=== PATIENT | female | born 1990 | race Caucasian/White ===

== ENCOUNTER 2021-10-14 14:46 | Outpatient (CLI) | payer SELFPAY ==
[2021-10-14 15:09] LABS: Absolute Lymphocyte Count 2.53 X10^3/uL (0.83-4.51); Absolute Neutrophil Count 9.7 X10^3/uL (2.0-7.7); Basophil# 0.05 X10^3/uL; Basophil% 0.4 % (0-1); Eosinophil# 0.14 X10^3/uL; Hematocrit 37.6 % (37-47); Hemoglobin 12.8 g/dL (12.0-15.0); Lymphocyte # 2.53 X10^3/ul (0.83-4.51); Lymphocyte % 18.6 % (19-41); Mean Corpuscular Volume 88.3 fL (81-99); Mean Platelet Vol. 10.6 fl (6.2-12.0); Monocyte# 1.04 X10^3/uL; Monocyte% 7.7 % (0-10); NRBC Flagged by Analyzer 0 % (0-5); Neutrophil # 9.73 X10^3/uL (2.7-7.7); Neutrophil % 71.6 % (47-70); Platelet Count 252 K/mm3 (150-450); RBC Distribution Width CV 11.9 % (11.6-14.6); RBC Distribution Width SD 37.6 fl (35.1-43.9); Red Blood Count 4.26 M/mm3 (4.2-5.4); White Blood Count 13.6 K/mm3 (4.4-11.0)
[2021-10-14 16:27] LABS: HIV - WCH Non-Reactive (Nonreactive); Hepatitis B Surface Antigen Non-Reactive (Nonreactive); Hepatitis C Antibody Non-Reactive (Nonreactive); Rubella IgG Reactive (Nonreactive); Syphilis Antibodies Non-reactive
[2021-10-14 17:25] LABS: Amphetamine Urine VISTA NEGATIVE (<1000 ng/mL); Barbiturate Urine VISTA NEGATIVE (< 200 ng/mL); Benzodiazepine Urine VISTA NEGATIVE (< 200 ng/mL); Cocaine Urine VISTA NEGATIVE (< 300 ng/mL); Ecstacy Urine VISTA NEGATIVE (< 500 ng/mL); Methadone Urine VISTA NEGATIVE (< 300 ng/mL); PCP Urine VISTA NEGATIVE (< 25 ng/mL); THC Urine VISTA NEGATIVE (< 50 ng/mL); Vista UDS pH Range 6
[2021-10-18 15:07] LABS: Chlamydia By Nucleic Acid AMP Negative (Negative)
[2021-10-18 16:08] LABS: Gonococcus By Nucleic Acid AMP Negative (Negative)
[2021-10-20 08:46] LABS: HPV APTIMA, High Risk Negative (Negative)
== END 2021-10-14 23:59 | disposition short-term general hospital (02) ==
PROVIDERS: Referring Provider Obstetrics & Gynecology; Visit Provider Obstetrics & Gynecology
DX: Z34.00 Encounter for supervision of normal first pregnancy, unspecified trimester (principal)
CPT/HCPCS: 36415; 80307; 85025; 86703; 86762; 86780; 86803; 86850; 86900; 86901; 87086; 87340; 87491; 87591; 87624; 88175; G0145

== ENCOUNTER 2021-12-10 14:02 | Outpatient (CLI) | payer SELFPAY ==
[2021-12-10 15:06] LABS: NATERA MAILED SPECIMEN
== END 2021-12-10 23:59 | disposition home or self-care (01) ==
PROVIDERS: Referring Provider Obstetrics & Gynecology; Visit Provider Obstetrics & Gynecology
DX: Z34.81 Encounter for supervision of other normal pregnancy, first trimester (principal)
CPT/HCPCS: 36415

== ENCOUNTER 2022-01-07 12:47 | Outpatient (CLI) | payer SELFPAY ==
--- NOTE | 2022-01-07 12:51 | US_ITS ---
STUDY: SECOND AND THIRD TRIMESTER OBSTETRICAL ULTRASOUND REASON FOR EXAM: Female, 31 years old 20 week anatomy scan LMP: 08/15/2021. TECHNIQUE: Transabdominal and Transvaginal TECHNICAL QUALITY: Adequate. PRIOR ULTRASOUND: None. FINDINGS: There is a single intrauterine fetus. The fetus is in a cephalic presentation. There is demonstrated cardiac activity with a heart rate of 151 bpm. There is a normal amniotic fluid volume. The largest amniotic fluid pocket measures 4.2 cm x 10 cm. The amniotic fluid index (SOLANGE) is within normal limits. The placenta is anterior in location and is not low lying. There are Grade 0 placental changes. The cervix measures 4.3 cm in length. The bilateral adnexal regions are normal. BIOMETRY: BPD: 4.5 cm: 19 weeks, 4 days HC: 16.9 cm: 19 weeks, 3 days AC: 14 cm: 19 weeks, 2 days FL: 3.2 cm: 19 weeks, 6 days CI: 81% FL/BPD: 71% FL/HC: FL/AC: 23% HC/AC: 1.2 age by current US: 19 weeks, 2 days. WILL by current US: 06/01/2022. Estimated weight: 304 grams, +/- 46 grams, 7 %. Age by LMP: 20 weeks, 5 days. WILL by LMP: 06/01/2022. ANATOMY: Gender: Female Cranium: Normal lateral ventricles. Normal choroid plexus. Normal cerebellum. Normal cisterna magna. Normal face, nose and lips. Chest: Normal 4-chamber heart. Abdomen/Pelvis: Normal diaphragm. Normal stomach. Normal abdominal wall. Normal cord insertion. Normal 3 vessel cord. Normal kidneys. Normal bladder. Spine: Limited longitudinal images of the spine. Extremities: Normal bilateral upper extremities. Normal bilateral lower extremities. IMPRESSION: Single live intrauterine gestation dating 19 weeks and 2 days[address] the fetus in the 7th percentile. Limited longitudinal imaging of the spine. Follow-up recommended. Electronically Signed: César Waterman MD at 11:04 EDT , STUDY: FIRST TRIMESTER OBSTETRICAL ULTRASOUND REASON FOR EXAM: Female, 31 years old. Cervical length. LMP: 08/15/2021. TECHNIQUE: Transvaginal TECHNICAL QUALITY: Adequate. PRIOR ULTRASOUND: None. FINDINGS: The cervical length measures 4.3 cm. US/OB Anatomy Scan IMPRESSION: Cervical length measures 4.3 cm. Electronically Signed: César Waterman MD at 11:05 EDT ,
== END 2022-01-07 23:59 | disposition home or self-care (01) ==
PROVIDERS: PCP Family Medicine; Referring Provider Obstetrics & Gynecology; Visit Provider Obstetrics & Gynecology
DX: Z34.91 Encounter for supervision of normal pregnancy, unspecified, first trimester (principal); Z3A.12 12 weeks gestation of pregnancy
CPT/HCPCS: 76805; 76817

== ENCOUNTER → 2022-01-28 | Outpatient (CLI) | payer SELFPAY ==
--- NOTE | 2022-01-28 12:28 | US_ITS ---
STUDY: SECOND AND THIRD TRIMESTER OBSTETRICAL ULTRASOUND - LIMITED REASON FOR EXAM: Female, 31 years old repeat views of spine LMP: 08/15/2021. PRIOR ULTRASOUND: Comparison is made with prior study dated 01/07/2022. TECHNIQUE: Transabdominal TECHNICAL QUALITY: Adequate. FINDINGS: There is a single intrauterine fetus. The fetus is in a breech presentation. There is demonstrated cardiac activity with a heart rate of 150 bpm. There is a normal amniotic fluid volume. The largest amniotic fluid pocket measures 7.5 cm x 4.8 cm. The amniotic fluid index (SOLANGE) is within normal limits. The placenta is anterior in location and is not low lying. There are Grade 0 placental changes. The cervix measures 3.6 cm in length. Visualization of the cervical, thoracic, lumbar and sacral regions was obtained. No abnormality is seen. Incidental note is made of a 3.2 cm x 3.1 cm by 2.5 cm uterine fibroid. US/OB Limited (No Biometrics) IMPRESSION: Normal spine. Electronically Signed: César Waterman MD at 10:14 EDT ,
== END | disposition home or self-care (01) ==
PROVIDERS: PCP Family Medicine; Visit Provider Obstetrics & Gynecology
DX: Z34.90 Encounter for supervision of normal pregnancy, unspecified, unspecified trimester (principal)
CPT/HCPCS: 76815

== ENCOUNTER 2022-03-03 14:11 | Outpatient (CLI) | payer SELFPAY ==
[2022-03-03] VITALS (12 sets, daily range): BP systolic 116–126; BP diastolic 71–91; PULSE 100–123; TEMP 37.4; O2SAT 98; BMI 29.0
[2022-03-03 15:09] LABS: Hematocrit 36.5 % (37-47); Hemoglobin 12.4 g/dL (12.0-15.0); Mean Corpuscular Volume 91.3 fL (81-99); Mean Platelet Vol. 11.3 fl (6.2-12.0); Platelet Count 198 K/mm3 (150-450); RBC Distribution Width CV 12.1 % (11.6-14.6); RBC Distribution Width SD 40.4 fl (35.1-43.9); White Blood Count 13.7 K/mm3 (4.4-11.0)
[2022-03-03 15:18] LABS: International Normalized Ratio 1.1; Prothrombin Time (Protime)PT. 13.6 SECONDS (11.7-14.9)
[2022-03-03 15:19] LABS: Partial Thromboplast Time 30.1 Seconds (24.1-36.2)
[2022-03-03 15:21] LABS: Vista UDS pH Range 7
[2022-03-03 15:26] LABS: Glucose Challenge Gest 1H 50g 168 mg/dL (70-140)
[2022-03-03 15:31] LABS: Protein, Urine (Random) 28.7 mg/dL (<11.9); Protein:Creat Ratio 173 mg/g CRE (0-200)
[2022-03-03 15:50] LABS: Amphetamine Urine VISTA NEGATIVE (<1000 ng/mL); Barbiturate Urine VISTA NEGATIVE (< 200 ng/mL); Benzodiazepine Urine VISTA NEGATIVE (< 200 ng/mL); Cocaine Urine VISTA NEGATIVE (< 300 ng/mL); Ecstacy Urine VISTA NEGATIVE (< 500 ng/mL); Methadone Urine VISTA NEGATIVE (< 300 ng/mL); PCP Urine VISTA NEGATIVE (< 25 ng/mL); THC Urine VISTA NEGATIVE (< 50 ng/mL)
[2022-03-03 16:03] LABS: LDH 172 U/L (84-246)
[2022-03-03 16:17] LABS: AST(SGOT) 19 U/L (15-37); Alanine Aminotransfer ALT/SGPT 32 U/L (13-56); Creatinine, Serum 0.57 mg/dL (0.55-1.02); EST Glomerular Filtration Rate 131 mL/min (>60); Est Glom Filt Rate - Afr Amer 159 mL/min (>60); Estimated Creatinine Clearance 123.49 ml/min
--- NOTE | 2022-03-03 17:21 | OB.TRI.PN_ITS ---
Progress Notes Date of Service: 03/03/22 Progress Note: Patient presents for triage evaluation secondary to elevated bp in office FHT: 145 Moderate variability reactive no decelerations category I tracing [place]: no regular Contractions Assessment and plan: elevated bp- repeats WNL, neg urine protein nl labs React ilya NST, reassuring maternal and status patient discharged to home to follow-up in office in 1 week, needs 3 hour gtt. See problem list details for additional plan information. Laboratory Studies: Laboratory Tests 03/03/22 03/03/22 03/03/22 Range/Units 14:45 14:35 14:35 WBC (4.4-11.0) K/mm3 RBC (4.2-5.4) M/mm3 Hgb (12.0-15.0) g/dL Hct (37-47) % MCV (81-99) fL MCH (27.0-32.0) pg MCHC (32-36) g/dL RDW Std Deviation (35.1-43.9) fl RDW Coeff of Neeraj (11.6-14.6) % Plt Count (150-450) K/mm3 MPV (6.2-12.0) fl PT (11.7-14.9) SECONDS INR APTT (24.1-36.2) Seconds Creatinine (0.55-1.02) mg/dL Estim Creat Clear Calc ml/min Est GFR (MDRD) Af Amer (>60) mL/min Est GFR (MDRD) Non-Af (>60) mL/min Glucose 1 Hr 50 gm 168 H (70-140) mg/dL Uric Acid (2.6-6.0) mg/dL AST (15-37) U/L ALT (13-56) U/L Lactate Dehydrogenase 172 (84-246) U/L U Random Total Protein (<11.9) mg/dL Urine Creatinine (NO RANGE EST.) mg/dL Protein/Creatinin Ratio (0-200) mg/g CRE Urine Opiates Screen NEGATIVE (< 300 ng/mL) Urine Methadone Screen NEGATIVE (< 300 ng/mL) Ur Barbiturates Screen NEGATIVE (< 200 ng/mL) Ur Phencyclidine Scrn NEGATIVE (< 25 ng/mL) Ur Amphetamines Screen NEGATIVE (<1000 ng/mL) MDMA (Ecstasy) Screen NEGATIVE (< 500 ng/mL) U Benzodiazepines Scrn NEGATIVE (< 200 ng/mL) Urine Cocaine Screen NEGATIVE (< 300 ng/mL) U Cannabinoids Screen NEGATIVE (< 50 ng/mL) Ur Drug Screen Comment 03/03/22 03/03/22 03/03/22 Range/Units 14:35 14:35 14:35 WBC (4.4-11.0) K/mm3 RBC (4.2-5.4) M/mm3 Hgb (12.0-15.0) g/dL Hct (37-47) % MCV (81-99) fL MCH (27.0-32.0) pg MCHC (32-36) g/dL RDW Std Deviation (35.1-43.9) fl RDW Coeff of Neeraj (11.6-14.6) % Plt Count (150-450) K/mm3 MPV (6.2-12.0) fl PT 13.6 (11.7-14.9) SECONDS INR 1.1 APTT 30.1 (24.1-36.2) Seconds Creatinine 0.57 (0.55-1.02) mg/dL Estim Creat Clear Calc 123.49 ml/min Est GFR (MDRD) Af Amer 159 (>60) mL/min Est GFR (MDRD) Non-Af 131 (>60) mL/min Glucose 1 Hr 50 gm (70-140) mg/dL Uric Acid 3.0 (2.6-6.0) mg/dL AST 19 (15-37) U/L ALT 32 (13-56) U/L Lactate Dehydrogenase (84-246) U/L U Random Total Protein 28.7 H (<11.9) mg/dL Urine Creatinine 166.00 (NO RANGE EST.) mg/dL Protein/Creatinin Ratio 173 (0-200) mg/g CRE Urine Opiates Screen (< 300 ng/mL) Urine Methadone Screen (< 300 ng/mL) Ur Barbiturates Screen (< 200 ng/mL) Ur Phencyclidine Scrn (< 25 ng/mL) Ur Amphetamines Screen (<1000 ng/mL) MDMA (Ecstasy) Screen (< 500 ng/mL) U Benzodiazepines Scrn (< 200 ng/mL) Urine Cocaine Screen (< 300 ng/mL) U Cannabinoids Screen (< 50 ng/mL) Ur Drug Screen Comment 03/03/22 Range/Units 14:35 WBC 13.7 H (4.4-11.0) K/mm3 RBC 4.00 L (4.2-5.4) M/mm3 Hgb 12.4 (12.0-15.0) g/dL Hct 36.5 L (37-47) % MCV 91.3 (81-99) fL MCH 31.0 (27.0-32.0) pg MCHC 34.0 (32-36) g/dL RDW Std Deviation 40.4 (35.1-43.9) fl RDW Coeff of Neeraj 12.1 (11.6-14.6) % Plt Count 198 (150-450) K/mm3 MPV 11.3 (6.2-12.0) fl PT (11.7-14.9) SECONDS INR APTT (24.1-36.2) Seconds Creatinine (0.55-1.02) mg/dL Estim Creat Clear Calc ml/min Est GFR (MDRD) Af Amer (>60) mL/min Est GFR (MDRD) Non-Af (>60) mL/min Glucose 1 Hr 50 gm (70-140) mg/dL Uric Acid (2.6-6.0) mg/dL AST (15-37) U/L ALT (13-56) U/L Lactate Dehydrogenase (84-246) U/L U Random Total Protein (<11.9) mg/dL Urine Creatinine (NO RANGE EST.) mg/dL Protein/Creatinin Ratio (0-200) mg/g CRE Urine Opiates Screen (< 300 ng/mL) Urine Methadone Screen (< 300 ng/mL) Ur Barbiturates Screen (< 200 ng/mL) Ur Phencyclidine Scrn (< 25 ng/mL) Ur Amphetamines Screen (<1000 ng/mL) MDMA (Ecstasy) Screen (< 500 ng/mL) U Benzodiazepines Scrn (< 200 ng/mL) Urine Cocaine Screen (< 300 ng/mL) U Cannabinoids Screen (< 50 ng/mL) Ur Drug Screen Comment Charges/Coding Procedures Urinary/Genital [id number]: [id number] non-stress test Interp
== END 2022-03-03 16:50 | disposition home or self-care (01) ==
LOC: WPOUT 14:19 → WP 14:21
PROVIDERS: Obstetrics & Gynecology; PCP Family Medicine; Visit Provider Obstetrics & Gynecology
DX: O99.891 Other specified diseases and conditions complicating pregnancy (principal); R03.0 Elevated blood-pressure reading, without diagnosis of hypertension; Z3A.00 Weeks of gestation of pregnancy not specified
CPT/HCPCS: 36415; 59025; 59050; 80307; 82565; 82570; 82950; 83615; 84156; 84450; 84460; 84550; 85027; 85610; 85730; 99218; G0378

== ENCOUNTER → 2022-03-07 | Outpatient (CLI) | payer SELFPAY ==
[2022-03-07 08:16] LABS: Glucose GTT-Gestation. Fasting 87 mg/dL (<105)
[2022-03-07 09:23] LABS: Glucose GTT-Gestational 1 Hr 174 mg/dL (<190)
[2022-03-07 10:11] LABS: Glucose GTT-Gestational 2 Hr 169 mg/dL (<165)
[2022-03-07 11:39] LABS: Glucose GTT-Gestational 3 Hr 132 L (<145)
== END | disposition home or self-care (01) ==
LOC: LAB 07:32
PROVIDERS: PCP Family Medicine; Referring Provider Obstetrics & Gynecology; Visit Provider Obstetrics & Gynecology
DX: Z13.1 Encounter for screening for diabetes mellitus (principal)
CPT/HCPCS: 36415; 82951; 82952

== ENCOUNTER → 2022-04-29 | Outpatient (CLI) | payer SELFPAY | END | disposition home or self-care (01) | PROVIDERS: PCP Family Medicine; Visit Provider Obstetrics & Gynecology | DX: Z34.90 Encounter for supervision of normal pregnancy, unspecified, unspecified trimester (principal) | CPT/HCPCS: 87081 ==

== ENCOUNTER 2022-05-28 02:05 | Inpatient (IN) | payer SELFPAY ==
[2022-05-28] VITALS (46 sets, daily range): BP systolic 89–158; BP diastolic 50–119; PULSE 8–129; RESP 14–16; TEMP 36.2–37.3; O2SAT 82–100; BMI 31.7
[2022-05-28] MEDS: LACTATED RINGERS 500 ML 999 ML IV (02:20)
[2022-05-28] MEDS: Lactated Ringers 1,000 ML 200 ML IV ×2 (02:20→07:14)
[2022-05-28 02:41] LABS: Absolute Lymphocyte Count 2.41 X10^3/uL (0.83-4.51); Absolute Neutrophil Count 15.2 X10^3/uL (2.0-7.7); Basophil# 0.07 X10^3/uL; Basophil% 0.4 % (0-1); Eosinophil# 0.06 X10^3/uL; Eosinophils% 0.3 % (0-5); Hematocrit 36.9 % (37-47); Hemoglobin 12.5 g/dL (12.0-15.0); Lymphocyte # 2.41 X10^3/ul (0.83-4.51); Lymphocyte % 12.1 % (19-41); Mean Corp Hgb Conc 33.9 g/dL (32-36); Mean Corpuscular Hgb 30.1 pg (27.0-32.0); Mean Corpuscular Volume 88.9 fL (81-99); Mean Platelet Vol. 11.5 fl (6.2-12.0); NRBC Flagged by Analyzer 0 % (0-5); Neutrophil % 76.1 % (47-70); POSITIVE DIFFERENTIAL YES; Platelet Count 187 K/mm3 (150-450); RBC Distribution Width SD 42.1 fl (35.1-43.9); Red Blood Count 4.15 M/mm3 (4.2-5.4)
[2022-05-28 02:56] LABS: Differential Comment SCANNED; Differential Indicated SCAN CRITERIA MET
[2022-05-28] MEDS: Ondansetron 4 MG/2 ML Vial IV (03:15)
[2022-05-28] MEDS: fentaNYL-bupivacaine (epidural) 100 ML BAG EPIDURAL ×2 (03:49→07:55)
[2022-05-28] MEDS: Oxytocin 30 units/NS 500 ml 30 UNITS/500 ML IV.SOLN 334 UNITS IV (09:00)
--- NOTE | 2022-05-28 09:22 | HP.PCM.OB_ITS ---
HPI - General General Date of Admission: 05/28/22 HPI Narrative GABRIELLE RAZO, is a 31 F who presents IAL no vb lof admits good fm 6 cm dilated Maternal Data Information WILL Calculator 2 Estimated Delivery Date Method Current WG Current Estimate 05/22/22 LMP (Certain) 40w 6d PFSH PFSH Medical History Abnormal glucose affecting Home Medications prenat.vits,elmo,[id number] 1 tab PO DAILY Check with primary doctor 10/12/21 [History Last Taken 05/27/22 07:00] Allergy/AdvReac Type Severity Reaction Status Date / Time No Known Allergies Allergy Verified 05/28/22 03:37 Family History Mother Diabetes Fatty liver Father Fatty liver Surgical History H/O wisdom tooth extraction Social History adopted: No household members: spouse and other details: brother current occupational status: employed current occupation: [employer] pets and animals: Yes pets and animals: cat(s) and dog(s) history of recent travel: No sexually active: Yes Smoking Status: Never smoker details: not while substance use type: does not use well-balanced diet: other details: follows kosher diet caffeine: No what type of physical activity do you participate in: none do you feel safe at home: Yes History 1 Elective abortions Hx Para 0 Spontaneous abortions Hx # Term Pregnancies Ectopic pregnancies Hx # Pregnancies Multiple births # of living children Visit Details Expected Delivery Route/Plan Labor Preferences- CB/BF classes: labor support person: Thaddeus labor intervention preferences: no vaccinations pain management options preferred: epidural cut cord/dad catch: yes : yes PP control planned: discussed possible routes of delivery and associated risks: [] special requests: [] Plans Covid status: discussed Flu vaccine: discussed Tdap vaccine: na Rhogam: na LARC form signed: declined movement and labor precautions reviewed. Problem list reviewed and updated with the most current plan of care details and appropriate orders placed. Relevant counseling for the gestational age provided. Continue routine care and follow up unless otherwise noted in visit notes/problem list details OB Flowsheet Initial Weight: 144 lb Date -?-?-?-?-?-?-?-?-?-?-?-?- EGA Weight BP Urine Prot -?-?-?-?-?-?-?-?-?-?-?-?- Glucose FHR FuHt Pres Dilation -?-?-?-?-?-?-?-?-?-?-?-?- Effaced St Visit Note 10/14/21 -?-?-?-?-?-?-?-?-?-?-?-?- 8w 4d 144 lb 6 oz (+6 oz) 138/90 122/80 -?-?-?-?-?-?-?-?-?-?-?-?- 160 -?-?-?-?-?-?-?-?-?-?-?-?- SM- CRL cons wit h LMP 2 cm 11/12/21 -?-?-?-?-?-?-?-?-?-?-?-?- 12w 5d 150 lb 4 oz (+6 lb 4 oz) 138/90 Negative -?-?-?-?-?-?-?-?-?-?-?-?- Negative 163 -?-?-?-?-?-?-?-?-?-?-?-?- JV- pt is bleedi ng heavily after intercourse. On exam there is a moderate cervical ectropion that bleeds with slight touch of a q-tip. Ultrasound shows a live IUP measuring 12 weeks 6 days. pt reassured. recommend no vaginal intercourse for at least one month. formal anatomy scan ordered. 12/10/21 -?-?-?-?-?-?-?-?-?-?-?-?- 16w 5d 151 lb (+7 lb) 122/84 Negative -?-?-?-?-?-?-?-?-?-?-?-?- Negative 160 -?-?-?-?-?-?-?-?-?-?-?-?- Sm- no vb crampi ng 02/18/22 -?-?-?-?-?-?-?-?-?-?-?-?- 26w 5d 169 lb (+25 lb) 130/88 Negative -?-?-?-?-?-?-?-?-?-?-?-?- Negative 150 26 -?-?-?-?-?-?-?-?-?-?-?-?- JV- pt has been missing for 10 weeks and has many questions about labor and delivery. She has a religous belief that she can not accept the hep b vaccine and is unsure if she can accept blood transfusions. She has complaints of joint cracking, hip pain, mood changes, and delayed cord clamping. 03/03/22 -?-?-?-?-?-?-?-?-?-?-?-?- 28w 4d 169 lb 4 oz (+25 lb 4 oz) 141/83 Negative -?-?-?-?-?-?-?-?-?-?-?-?- Negative 145 28 -?-?-?-?-?-?-?-?-?-?-?-?- JV- highest bp 1 61/95. She states that she is scared to drive because her vision is not as good as it used to be.She complains of swelling in hands also. sending to l&D for labs 03/10/22 -?-?-?-?-?-?-?-?-?-?--?-?- 29w 4d 170 lb 4 oz (+26 lb 4 oz) 129/85 Negative -?-?-?-?-?-?-?-?-?-?-?-?- Negative 162 -?-?-?-?-?-?-?-?-?-?-?-?- JV- bp now korin l and normal at home also. tdap tdoay. 03/25/22 -?-?-?-?-?-?-?-?-?-?-?-?- 31w 5d 173 lb 2 oz (+29 lb 2 oz) 118/70 Negative -?-?-?-?-?-?-?-?-?-?-?-?- Negative 154 32 -?-?-?-?-?-?-?-?-?-?-?-?- JV- encouraged t o wear compression stockings for low blood pressure. no lof ,v aginal bleeding, or dec fm. LARC signed. 04/22/22 -?-?-?-?-?-?-?-?-?-?-?-?- 35w 5d 179 lb (+35 lb) 113/83 -?-?-?-?-?-?-?-?-?-?-?-?- 150 36 -?-?-?-?-?-?-?-?-?-?-?-?- Sm- no vb lof go od fm no regular ctx 04/29/22 -?-?-?-?-?-?-?-?-?-?-?-?- 36w 5d 182 lb 8 oz (+38 lb 8 oz) 118/70 Negative -?-?-?-?-?-?-?-?-?-?-?-?- Negative 140 37 Cephalic 2 -?-?-?-?-?-?-?-?-?-?-?-?- 50 -2 Sm- no vb lof good fm no reuglar ctx gbs done 05/06/22 -?-?-?-?-?-?-?-?-?-?-?-?- 37w 5d 181 lb 8 oz (+37 lb 8 oz) 126/80 Negative -?-?-?-?-?-?-?-?-?-?-?-?- Negative 134 38 Cephalic -?-?-?-?-?-?-?-?-?-?-?-?- JV- pt declines pelvic exam. no complaints today. labor precautions discussed. 05/13/22 -?-?-?-?-?-?-?-?-?-?-?-?- 38w 5d 184 lb (+40 lb) 114/82 -?-?-?-?-?-?-?-?-?-?-?-?- 135 40 Cephalic 3 -?-?-?-?-?-?-?-?-?-?-?-?- 60 -2 Sm- no vb lof good fm no regular ctx 05/20/22 -?-?-?-?-?-?-?-?-?-?-?-?- 39w 5d 185 lb (+41 lb) 132/88 Negative -?-?-?-?-?-?-?-?-?-?-?-?- Negative 140 40 Cephalic 3 -?-?-?-?-?-?-?-?-?-?-?-?- 60 -1 Sm- no vb lof good fm no regular ctx 05/27/22 -?-?-?-?-?-?-?-?-?-?-?-?- 40w 5d 186 lb (+42 lb) 132/80 -?-?-?-?-?-?-?-?-?-?-?-?- 140 40 Cephalic 4 -?-?-?-?-?-?-?-?-?-?-?-?- 80 -1 SM-no vb l of good fm no regular ctx 05/28/22 -?-?-?-?-?-?-?-?-?-?-?-?- 40w 6d 184 lb 12.8 oz (+40 lb 12.8 oz) 137/82 141/72 143/71 134/76 114/51 118/59 124/56 117/65 107/53 99/56 101/65 148/119 96/55 89/54 119/59 115/57 110/68 -?-?-?-?-?-?-?-?-?-?-?-?- -?-?-?-?-?-?-?-?-?-?-?-?- NST FHR Rate Baby A Baseline: 140 Variability:: Moderate Accelerations:: 15 x 15 Decelerations:: None NST Reactive:: Yes FHR Category:: Category I Uterine Activity:: q3-5 ROS Constitutional Constitutional: Reports systems reviewed and no addt'l complaints, except as documented ENT HEENT: Reports systems reviewed and no addt'l complaints, except as documented Cardiovascular Cardiovascular: Reports systems reviewed and no addt'l complaints, except as documented Respiratory/Chest Respiratory/Chest: Reports systems reviewed and no addt'l complaints, except as documented Gastrointestinal Gastrointestinal: Reports systems reviewed and no addt'l complaints, except as documented and nausea; Denies abdominal pain Genitourinary Genitourinary: Reports systems reviewed and no addt'l complaints, except as documented, contractions Details: present and frequency (regular ) and movement Details: present Musculoskeletal Musculoskeletal: Reports systems reviewed and no addt'l complaints, except as documented Integumentary Integumentary: Reports as per HPI Neurologic Neurologic: Reports systems reviewed and no addt'l complaints, except as documented Endocrine Endocrinology: Reports systems reviewed and no addt'l complaints, except as documented Vital Signs Vital Signs Vital Signs: 05/28/22 01:59 05/28/22 01:59 05/28/22 03:30 Temperature Temperature Source Pulse Rate 113 H 113 H Blood Pressure 137/82 H BP Systolic 137 BP Diastolic 82 Pulse Ox 05/28/22 03:30 05/28/22 03:31 05/28/22 03:31 Temperature Temperature Source Pulse Rate 111 H Blood Pressure 141/72 H BP Systolic 141 BP Diastolic 72 Pulse Ox 100 05/28/22 03:36 05/28/22 03:36 05/28/22 03:35 Temperature Temperature Source Pulse Rate 109 H Blood Pressure 143/71 H BP Systolic 143 BP Diastolic 71 Pulse Ox 100 05/28/22 03:40 05/28/22 03:40 05/28/22 03:42 Temperature Temperature Source Pulse Rate 103 H Blood Pressure 134/76 H BP Systolic 134 BP Diastolic 76 Pulse Ox 99 05/28/22 03:42 05/28/22 03:44 05/28/22 03:44 Temperature Temperature Source Pulse Rate 112 H 8 L Blood Pressure BP Systolic BP Diastolic Pulse Ox 82 05/28/22 03:45 05/28/22 03:45 05/28/22 03:48 Temperature Temperature Source Pulse Rate 107 H Blood Pressure 114/51 L BP Systolic 114 BP Diastolic 51 Pulse Ox 100 05/28/22 03:48 05/28/22 03:50 05/28/22 03:50 Temperature Temperature Source Pulse Rate 117 H 119 H Blood Pressure BP Systolic BP Diastolic Pulse Ox 99 05/28/22 03:51 05/28/22 03:51 05/28/22 03:55 Temperature Temperature Source Pulse Rate 129 H 114 H Blood Pressure 118/59 L BP Systolic 118 BP Diastolic 59 Pulse Ox 05/28/22 03:55 05/28/22 03:56 05/28/22 03:56 Temperature Temperature Source Pulse Rate 118 H Blood Pressure 124/56 H BP Systolic 124 BP Diastolic 56 Pulse Ox 98 05/28/22 04:00 05/28/22 04:00 05/28/22 04:02 Temperature Temperature Source Pulse Rate 117 H Blood Pressure 117/65 BP Systolic 117 BP Diastolic 65 Pulse Ox 98 05/28/22 04:02 05/28/22 04:06 05/28/22 04:06 Temperature Temperature Source Pulse Rate 111 H 111 H Blood Pressure 107/53 L BP Systolic 107 BP Diastolic 53 Pulse Ox 05/28/22 04:05 05/28/22 04:10 05/28/22 04:10 Temperature Temperature Source Pulse Rate 108 H Blood Pressure BP Systolic BP Diastolic Pulse Ox 97 98 05/28/22 04:11 05/28/22 04:11 05/28/22 04:12 Temperature Temperature Source Pulse Rate 110 H 98 Blood Pressure 99/56 L BP Systolic 99 BP Diastolic 56 Pulse Ox 05/28/22 04:12 05/28/22 05:06 05/28/22 05:06 Temperature Temperature Source Pulse Rate 104 H Blood Pressure BP Systolic BP Diastolic Pulse Ox 82 98 05/28/22 05:07 05/28/22 05:07 05/28/22 05:09 Temperature Temperature Source Pulse Rate 8 L Blood Pressure 101/65 BP Systolic 101 BP Diastolic 65 Pulse Ox 82 05/28/22 05:09 05/28/22 05:08 05/28/22 05:08 Temperature 97.8 F Temperature Source Temporal Pulse Rate 106 H Blood Pressure BP Systolic BP Diastolic Pulse Ox 05/28/22 06:00 05/28/22 06:00 05/28/22 06:00 Temperature Temperature Source Temporal Pulse Rate 104 H Blood Pressure 148/119 H BP Systolic 148 BP Diastolic 119 Pulse Ox 05/28/22 06:00 05/28/22 06:03 05/28/22 06:03 Temperature 98.6 F Temperature Source Pulse Rate 101 H Blood Pressure 96/55 L BP Systolic 96 BP Diastolic 55 Pulse Ox 05/28/22 07:13 05/28/22 07:13 05/28/22 07:18 Temperature Temperature Source Pulse Rate 93 Blood Pressure 89/54 L BP Systolic 89 BP Diastolic 54 Pulse Ox 96 05/28/22 07:18 05/28/22 07:13 05/28/22 07:13 Temperature Temperature Source Temporal Pulse Rate 87 Blood Pressure BP Systolic BP Diastolic Pulse Ox 96 05/28/22 08:16 05/28/22 08:16 05/28/22 08:17 Temperature Temperature Source Pulse Rate 94 Blood Pressure 119/59 L BP Systolic 119 BP Diastolic 59 Pulse Ox 98 05/28/22 08:17 05/28/22 08:17 05/28/22 08:17 Temperature 98.8 F Temperature Source Temporal Pulse Rate 95 Blood Pressure BP Systolic BP Diastolic Pulse Ox 05/28/22 07:13 05/28/22 09:09 05/28/22 09:09 Temperature 97.2 F L Temperature Source Pulse Rate 110 H Blood Pressure 115/57 L BP Systolic 115 BP Diastolic 57 Pulse Ox Weight Weight: 184 lb 12.8 oz Body Mass Index (BMI) 31.7 Physical Exam Const alert, oriented x3 and healthy appearing Constitutional Narrative: uncomfortable with contractions HEENT normocephalic and moist oral mucous membranes Head and Scalp: atraumatic Neck full ROM, no lymphadenopathy, supple and thyroid normal General: trachea midline Thyroid: thyroid normal Lymph Lymphatic: no lymphadenopathy noted Chest inspection of chest normal Resp normal respiratory effort Cardio regular rate GI normal to inspection, nondistended, normoactive bowel sounds, soft to palpation and non-tender Inspection: gravid external exam normal Bimanual Exam - Vag & Uterus: uterus non-tender Manual OB Exam: estimated gestational size appropriate, presentation cephalic, dilated, effaced and station Extremity normal to inspection General Extremity: Negative for edema Skin no rashes or lesions noted Neuro deep tendon reflexes 2+ bilaterally Motor Exam: strength 5/5 throughout and clonus absent Psych mental status grossly normal Labs Labs Labs: Blood Type O POSITIVE Antibody Screen NEGATIVE Hct 36.9 % (37-47) L Hgb 12.5 g/dL (12.0-15.0) Obstetrics US Syphilis Total Ab Non-reactive Rubella IgG Antibody Reactive (Nonreactive) Hep Bs Antigen Non-Reactive (Nonreactive) Chlamydia DNA (ADONIS) Negative (Negative) Neisseria gonorrhoeae DNA (ADONIS) Negative (Negative) HIV 1&2 Antibody Non-Reactive (Nonreactive) Glucose 1 Hr 50 gm 168 mg/dL (70-140) H Assessment & Plan (1) Supervision of normal first : COMMENT: PRR , girl Jose, WILL 05/22/22 Spouse: Thaddeus (2) : QUALIFIERS: Weeks of gestation: 40 weeks Qualified Code(s): Z3A.40 - 40 weeks gestation of COMMENT: GBS neg. Declines carrier and desires genetic testing, NIPT low risk. Normal anatomy (3) Non-compliant behavior: COMMENT: pt missed 10 weeks of care from 12/10 to 02/18 without explanation. (4) Abnormal glucose affecting : COMMENT: failed 1 hr, nl 3 hr GCT (5) Active labor at term: COMMENT: routine care arom clear PLAN: Plan Patient presents IAL, plan expectant management for , pitocin/AROM PRN if needed. Pain management: plans epidural. GBS neg. Management of any complications: none I have reviewed the [facility] and made any clinically relevant updates.
--- NOTE | 2022-05-28 09:30 | EX.PCM.OBRPT ---
Assessment & Plan (1) Supervision of normal first : COMMENT: PRR , girl Jose, WILL 05/22/22 Spouse: Thaddeus (2) : QUALIFIERS: Weeks of gestation: 40 weeks Qualified Code(s): Z3A.40 - 40 weeks gestation of COMMENT: GBS neg. Declines carrier and desires genetic testing, NIPT low risk. Normal anatomy (3) Non-compliant behavior: COMMENT: pt missed 10 weeks of care from 12/10 to 02/18 without explanation. (4) Abnormal glucose affecting : COMMENT: failed 1 hr, nl 3 hr GCT (5) Active labor at term: COMMENT: routine care arom clear (6) Vaginal delivery: COMMENT: 40w6d SM girl Jose Maternal Data Information WILL Calculator Estimated Delivery Date Method Current WG Current Estimate 05/22/22 LMP (Certain) 40w 6d Vaginal Delivery Maternal Presentation Maternal Presentation: Active Labor Operative Information Date of Procedure: 05/28/22 Pre-Operative Diagnosis: IAL Post-Operative Diagnosis: same Surgery / Procedure Performed: Spontaneous Vaginal Delivery Type of Anesthesia: Epidural Special Medications: none Estimated Blood Loss: 200 Fluids Replaced: crystalloid Findings Description of Procedure: Patient began pushing and delivered the head in the BLANCA presentation. The head was delivered atraumatically and a loose nuchal cord ?1 was identified and the infant delivered through without complication. The anterior and posterior shoulders delivered without complication followed by the rest of the and the was placed on the maternal abdomen. Delayed cord clamping was employed for approximately 60 seconds. Cord was clamped and cut and gentle traction was applied to the cord and the placenta delivered spontaneously immediately following it was noted to be intact with three-vessel cord. The perineum and vagina were inspected and noted to have a first degree laceration repaired with 3-0 rapide. EBL was 200. Patient and tolerated delivery well. Presentation: BLANCA Amniotic Membrane Rupture Type: Artificial Amniotic Fluid Description: Clear Placental Delivery Description: Spontaneous Placenta Disposition: [facility] Cord Vessel Description: 3 Vessels Cord Entanglement: Around neck x 1, loose A Gender: Female Delayed Cord Clamping: Yes Post Vaginal Delivery Medications Given After Delivery: IV Pitocin Episiotomy Description: None Laceration: Perineal Extension/lac and 1st degree Complication Complications: None Procedures Urinary/Genital [id number]: [id number] Vaginal Delivery [facility]
--- NOTE | 2022-05-28 09:34 | DCINST_ITS ---
Discharge Instructions Diet Discharge Diet: No restrictions Activity Discharge Activity: Return to Normal Activity, May Drive, May Shower and May Take a Tub Bath (in 4 weeks) May resume sexual activity in: 6-8 weeks (after seen by OB provider) Weight Bearing Status: Full weight bearing Lifting Restrictions: none Dressing / Incision Call your doctor if you observe: Fever of 101 or Higher, Inability to urinate, Using more than 1 pad per hour (for more than 2 hours in a row or more), Shortness of breath, Dizziness, Chest pain and - (headache not controlled with tylenol, change in vision) Follow Up Care When: in 6 weeks for visit, call the office to make the appointment. If you had elevated blood pressures call the office to be seen within 1 week. Test Results: Test results from this visit will be discussed in further detail at your follow- up appointment, if applicable. Discharge Plan Admission Admit Date/Time: 05/28/22 02:05 Attending Provider: Manisha Daley Primary Care Provider: Jayjay Jaeger Discharge Orders/Prescriptions Prescriptions: No Action prenat.vits,elmo,[id number] Tablet 1 tab PO DAILY Referrals / Follow Up: Jayjay Jaeger MD [Primary Care Provider] - Disposition Disposition (needs filled in before D/C Order can be placed): Home, Self Care
[2022-05-28] MEDS: Benzocaine/Lanolin/Aloe Vera 1 SPRAY EACH TOPICAL (10:10)
[2022-05-28] MEDS: Naproxen 500 MG Tablet PO (10:10)
[2022-05-28] MEDS: Acetaminophen 500 MG Tablet 1000 MG PO (20:11)
[2022-05-29] VITALS (8 sets, daily range): BP systolic 109–124; BP diastolic 65–70; PULSE 81–105; RESP 16–18; TEMP 36.3–36.9
[2022-05-29] MEDS: Acetaminophen 500 MG Tablet 1000 MG PO ×3 (03:03→17:43)
--- NOTE | 2022-05-29 03:55 | PCM.PN.OB ---
Subjective Subjective Patient doing well without complaints. Tolerating PO. Ambulating and voiding without difficulty. feeding well. Denies chest pain, shortness of breath, calf pain/swelling, fevers, chills, lightheadedness. Objective Data Objective Data Vital Signs: Vital Signs Temp Pulse Resp BP Pulse Ox O2 Del Method 97.1 F L 99 16 110/61 97 Room Air 05/28/22 23:40 05/28/22 23:41 05/28/22 23:40 05/28/22 23:41 05/28/22 20:14 05/28/22 23:40 Oxygen Delivery Method Room Air Weight: 184 lb 12.8 oz Body Mass Index (BMI) 31.7 Intake & Output: Intake and Output for Last 24 Hours 05/27/22 05/28/22 05/29/22 23:59 23:59 23:59 Intake Total 2350 / 2350 Output Total 1100 / 1100 Balance 1250 / 1250 Lab / Micro Data Result Diagrams: 05/28/22 02:20 Micro: Microbiology 05/28/22 02:25 Nasal Secretion SARS-CoV-2 Antigen (Rapid) - Final ROS Constitutional Constitutional: Reports systems reviewed and no addt'l complaints, except as documented Cardiovascular Cardiovascular: Reports systems reviewed and no addt'l complaints, except as documented Respiratory/Chest Respiratory/Chest: Reports systems reviewed and no addt'l complaints, except as documented Gastrointestinal Gastrointestinal: Reports systems reviewed and no addt'l complaints, except as documented Physical Exam Const alert, oriented x3 and no apparent distress HEENT Head and Scalp: atraumatic Resp normal respiratory effort GI soft to palpation and non-tender Bimanual Exam - Vag & Uterus: uterus non-tender Uterus Palpation: uterus fundus firm (below Umbilicus) Assessment & Plan (1) Vaginal delivery: COMMENT: 40w6d SM girl Jose PLAN: Plan s/p PPD # 1 1. routine post delivery care 2. breast feeding- support given 3. rh positive 4. rubella immune
[2022-05-29] MEDS: Naproxen 500 MG Tablet PO ×3 (04:03→22:07)
[2022-05-29] MEDS: Senna/Docusate Sodium 1 Tablet PO (11:22)
[2022-05-30 02:30] VITALS: BP 118/78; PULSE 80
[2022-05-30 02:43] VITALS: BP 118/78; PULSE 80; RESP 16; TEMP 36.8
[2022-05-30] MEDS: Acetaminophen 500 MG Tablet 1000 MG PO (03:06)
[2022-05-30] MEDS: Benzocaine/Lanolin/Aloe Vera 1 SPRAY EACH TOPICAL (06:49)
[2022-05-30 07:45] VITALS: BP 115/68; PULSE 86; RESP 86; TEMP 36.4
[2022-05-30 08:06] VITALS: BP 115/68; PULSE 86
[2022-05-30] MEDS: Naproxen 500 MG Tablet PO (08:17)
--- NOTE | 2022-05-30 09:45 | PCM.PN.OB ---
Subjective Subjective Patient doing well without complaints. Tolerating PO. Ambulating and voiding without difficulty. feeding well. Denies chest pain, shortness of breath, calf pain/swelling, fevers, chills, lightheadedness. Objective Data Objective Data Vital Signs: Vital Signs Temp Pulse Resp BP Pulse Ox O2 Del Method 97.6 F L 86 86 H 115/68 97 Room Air 05/30/22 07:45 05/30/22 08:06 05/30/22 07:45 05/30/22 08:06 05/28/22 20:14 05/29/22 14:00 Oxygen Delivery Method Room Air Weight: 184 lb 12.8 oz Body Mass Index (BMI) 31.7 Intake & Output: Intake and Output for Last 24 Hours 05/28/22 05/29/22 05/30/22 23:59 23:59 23:59 Intake Total 2350 / 2350 Output Total 1100 / 1100 Balance 1250 / 1250 Lab / Micro Data Result Diagrams: 05/28/22 02:20 Micro: Microbiology 05/28/22 02:25 Nasal Secretion SARS-CoV-2 Antigen (Rapid) - Final ROS Constitutional Constitutional: Reports systems reviewed and no addt'l complaints, except as documented Cardiovascular Cardiovascular: Reports systems reviewed and no addt'l complaints, except as documented Respiratory/Chest Respiratory/Chest: Reports systems reviewed and no addt'l complaints, except as documented Gastrointestinal Gastrointestinal: Reports systems reviewed and no addt'l complaints, except as documented Physical Exam Const alert, oriented x3 and no apparent distress HEENT Head and Scalp: atraumatic Resp normal respiratory effort GI soft to palpation and non-tender Bimanual Exam - Vag & Uterus: uterus non-tender Uterus Palpation: uterus fundus firm (below Umbilicus) Assessment & Plan (1) Vaginal delivery: COMMENT: 40w6d SM girl Jose PLAN: Plan s/p PPD # 2 1. routine post delivery care 2. breast feeding- support given 3. rh positive 4. rubella immune
[2022-05-30 15:33] LABS: Pathologist Review Reviewed
== END 2022-05-30 13:15 | disposition home or self-care (01) | DRG 807 ==
LOC: WPOUT 02:16 → WP 02:16
PROVIDERS: Admitting Provider Obstetrics & Gynecology; PCP Family Medicine; Visit Provider Obstetrics & Gynecology
DX: O69.81X0 Labor and delivery complicated by cord around neck, without compression, not applicable or unspecified (principal); Z37.0 Single live birth; O99.810 Abnormal glucose complicating pregnancy; O70.0 First degree perineal laceration during delivery; Z3A.40 40 weeks gestation of pregnancy; Z91.19 Patient's noncompliance with other medical treatment and regimen; Z28.310 Unvaccinated for COVID-19; Z28.9 Immunization not carried out for unspecified reason
CPT/HCPCS: 59025; 59050; 85025; 86850; 86900; 86901; 87426; 99218; J7120; G0378; J2405

== ENCOUNTER → 2024-05-03 | Outpatient (CLI) | payer SELFPAY ==
[2024-05-06 22:07] LABS: Chlamydia By Nucleic Acid AMP Negative (Negative); Gonococcus By Nucleic Acid AMP Negative (Negative)
== END | disposition home or self-care (01) ==
LOC: LABSPEC 16:01
PROVIDERS: PCP Family Medicine; Referring Provider Registered Nurse; Visit Provider Registered Nurse
DX: O09.90 Supervision of high risk pregnancy, unspecified, unspecified trimester (principal); Z3A.00 Weeks of gestation of pregnancy not specified
CPT/HCPCS: 87086; 87088; 87491; 87591

== ENCOUNTER → 2024-05-09 | Outpatient (CLI) | payer SELFPAY ==
[2024-05-09 13:57] LABS: Absolute Lymphocyte Count 2.59 X10^3/uL (0.83-4.51); Absolute Neutrophil Count 9.1 X10^3/uL (2.0-7.7); Basophil# 0.04 X10^3/uL; Basophil% 0.3 % (0-1); Eosinophil# 0.18 X10^3/uL; Eosinophils% 1.4 % (0-5); Hematocrit 39.1 % (37-47); Hemoglobin 13.4 g/dL (12.0-15.0); Lymphocyte # 2.59 X10^3/ul (0.83-4.51); Lymphocyte % 20.1 % (19-41); Mean Corp Hgb Conc 34.3 g/dL (32-36); Mean Corpuscular Hgb 30.1 pg (27.0-32.0); Mean Corpuscular Volume 87.9 fL (81-99); Mean Platelet Vol. 11.7 fl (6.2-12.0); Monocyte# 0.87 X10^3/uL; Monocyte% 6.7 % (0-10); NRBC Flagged by Analyzer 0 % (0-5); Neutrophil # 9.13 X10^3/uL (2.7-7.7); Neutrophil % 70.8 % (47-70); Platelet Count 121 K/mm3 (150-450); RBC Distribution Width CV 11.9 % (11.6-14.6); RBC Distribution Width SD 38.2 fl (35.1-43.9); Red Blood Count 4.45 M/mm3 (4.2-5.4); White Blood Count 12.9 K/mm3 (4.4-11.0)
[2024-05-09 14:16] LABS: Hemoglobin A1c 5.1 % (3.8-5.6)
[2024-05-09 15:16] LABS: HIV - WCH Non-Reactive (Nonreactive); Hepatitis B Surface Antigen Non-Reactive (Nonreactive); Hepatitis C Antibody Non-Reactive (Nonreactive); Rubella IgG Reactive (Nonreactive); Syphilis Antibodies Non-reactive
== END | disposition home or self-care (01) ==
LOC: LAB 12:53
PROVIDERS: PCP Family Medicine; Referring Provider Registered Nurse; Visit Provider Registered Nurse
DX: O09.90 Supervision of high risk pregnancy, unspecified, unspecified trimester (principal); Z3A.00 Weeks of gestation of pregnancy not specified
CPT/HCPCS: 36415; 83036; 85025; 86703; 86762; 86780; 86803; 86850; 86900; 86901; 87340

== ENCOUNTER → 2024-07-05 | Outpatient (CLI) | payer SELFPAY ==
--- NOTE | 2024-07-05 15:20 | US_ITS ---
HISTORY: anatomy. LMP 02/13/2024 with EGA 20 weeks 3 days. TECHNIQUE: Transabdominal and transvaginal pelvic ultrasound was performed. 100 images. COMPARISON: None. FINDINGS: UTERUS: 3 x 4 x 4.3 cm anterior hypoechoic lesion. INTRAUTERINE GESTATION(s): Single. PRESENTATION: Cephalic. HEART MOTION: 153 bpm. PLACENTA: Posterior, grade 0. No placenta previa with the placental tip 5.6 cm from the internal os. CERVIX: 4.1 cm long and closed. AMNIOTIC FLUID: Maximum vertical pocket 3.5 cm. biometry- BIPARIETAL DIAMETER: 4.6 cm, corresponding to 19 weeks 6 days. HEAD CIRCUMFERENCE: 17.1 cm, corresponding to 19 weeks 5 days. ABDOMINAL CIRCUMFERENCE: 13.8 cm, corresponding to 19 weeks 2 days. FEMUR LENGTH: 3.2 cm, corresponding to 20 weeks 1 day. ESTIMATED GESTATIONAL AGE: 19 weeks 5 days. ESTIMATED DUE DATE (WILL): 11/24/2024. ESTIMATED WEIGHT: 306 g. 13th percentile. ANATOMY: Anterior and posterior cranial fossa, spine, orbits, nose/lips, bilateral upper and lower extremities, three-vessel cord insertion, stomach, kidneys, and bladder visualized. Limited evaluation of the facial profile and four-chamber heart due to position. IMPRESSION: Single living intrauterine with an estimated gestational age of 19 weeks 5 days. anatomic survey as above. 4.3 cm maternal uterine leiomyoma. Electronically Signed: Zenobia Snider MD at 10:35 EDT , HISTORY: anatomy. LMP 02/13/2024 with EGA 20 weeks 3 days. TECHNIQUE: Transabdominal and transvaginal pelvic ultrasound was performed. 100 images. COMPARISON: None. FINDINGS: UTERUS: 3 x 4 x 4.3 cm anterior hypoechoic lesion. INTRAUTERINE GESTATION(s): Single. PRESENTATION: Cephalic. HEART MOTION: 153 bpm. PLACENTA: Posterior, grade 0. No placenta previa with the placental tip 5.6 cm from the internal os. CERVIX: 4.1 cm long and closed. AMNIOTIC FLUID: Maximum vertical pocket 3.5 cm. biometry- BIPARIETAL DIAMETER: 4.6 cm, corresponding to 19 weeks 6 days. HEAD CIRCUMFERENCE: 17.1 cm, corresponding to 19 weeks 5 days. ABDOMINAL CIRCUMFERENCE: 13.8 cm, corresponding to 19 weeks 2 days. FEMUR LENGTH: 3.2 cm, corresponding to 20 weeks 1 day. ESTIMATED GESTATIONAL AGE: 19 weeks 5 days. ESTIMATED DUE DATE (WILL): 11/24/2024. ESTIMATED WEIGHT: 306 g. 13th percentile. ANATOMY: Anterior and posterior cranial fossa, spine, orbits, nose/lips, bilateral upper and lower extremities, three-vessel cord insertion, stomach, kidneys, and bladder visualized. Limited evaluation of the facial profile and four-chamber heart due to position. US/OB Anatomy w/ Transvaginal IMPRESSION: Single living intrauterine with an estimated gestational age of 19 weeks 5 days. anatomic survey as above. 4.3 cm maternal uterine leiomyoma. Electronically Signed: Zenobia Snider MD at 10:36 EDT ,
== END | disposition home or self-care (01) ==
PROVIDERS: PCP Family Medicine; Referring Provider Obstetrics & Gynecology; Visit Provider Obstetrics & Gynecology
DX: Z34.90 Encounter for supervision of normal pregnancy, unspecified, unspecified trimester (principal)
CPT/HCPCS: 76805; 76817

== ENCOUNTER → 2024-08-23 | Outpatient (CLI) | payer SELFPAY ==
[2024-08-23 12:22] LABS: Absolute Lymphocyte Count 1.98 X10^3/uL (0.83-4.51); Absolute Neutrophil Count 11.1 X10^3/uL (2.0-7.7); Basophil% 0.7 % (0-1); Eosinophils% 0.7 % (0-5); Hematocrit 36.7 % (37-47); Hemoglobin 12.7 g/dL (12.0-15.0); Lymphocyte # 1.98 X10^3/ul (0.83-4.51); Lymphocyte % 13.7 % (19-41); Mean Corp Hgb Conc 34.6 g/dL (32-36); Mean Corpuscular Hgb 30.8 pg (27.0-32.0); Mean Corpuscular Volume 88.9 fL (81-99); Mean Platelet Vol. 12.3 fl (6.2-12.0); Monocyte# 0.77 X10^3/uL; Monocyte% 5.3 % (0-10); NRBC Flagged by Analyzer 0 % (0-5); Neutrophil # 11.08 X10^3/uL (2.7-7.7); Neutrophil % 76.8 % (47-70); Platelet Count 129 K/mm3 (150-450); RBC Distribution Width CV 12.8 % (11.6-14.6); RBC Distribution Width SD 41.1 fl (35.1-43.9); Red Blood Count 4.13 M/mm3 (4.2-5.4); White Blood Count 14.4 K/mm3 (4.4-11.0)
[2024-08-23 12:46] LABS: Glucose Challenge Gest 1H 50g 183 mg/dL (70-140)
[2024-08-23 13:23] LABS: HIV - WCH Non-Reactive (Nonreactive); Syphilis Antibodies Non-reactive
== END | disposition home or self-care (01) ==
LOC: BWCLAB 11:03
PROVIDERS: Obstetrics & Gynecology; PCP Family Medicine; Referring Provider Advanced Practice Midwife; Visit Provider Advanced Practice Midwife
DX: O09.90 Supervision of high risk pregnancy, unspecified, unspecified trimester (principal); Z3A.00 Weeks of gestation of pregnancy not specified
CPT/HCPCS: 36415; 82950; 85025; 86703; 86780

== ENCOUNTER 2024-09-18 14:26 | Outpatient (RCR) | payer SELFPAY ==
--- NOTE | 2024-09-26 15:36 | NS ---
09/26/24: RDN called pt for nutrition follow-up 2x on 09/26 and the was no answer. Pt doesn't have voicemail set up so RDN was unable to leave a message. Lizbet Gamez RDN, LD
== END 2024-10-01 23:59 ==
LOC: NS 14:26
PROVIDERS: PCP Family Medicine; Visit Provider Advanced Practice Midwife
DX: Z71.3 Dietary counseling and surveillance (principal); O24.419 Gestational diabetes mellitus in pregnancy, unspecified control
CPT/HCPCS: 97802

== ENCOUNTER → 2024-10-18 | Outpatient (CLI) | payer SELFPAY ==
[2024-10-18 17:15] LABS: Hematocrit 41.7 % (37-47); Hemoglobin 14.1 g/dL (12.0-15.0); Mean Corp Hgb Conc 33.8 g/dL (32-36); Mean Corpuscular Hgb 30.4 pg (27.0-32.0); Mean Corpuscular Volume 89.9 fL (81-99); Mean Platelet Vol. 11.9 fl (6.2-12.0); Platelet Count 145 K/mm3 (150-450); RBC Distribution Width CV 13.5 % (11.6-14.6); RBC Distribution Width SD 44.4 fl (35.1-43.9); Red Blood Count 4.64 M/mm3 (4.2-5.4); White Blood Count 13.4 K/mm3 (4.4-11.0)
[2024-10-18 17:30] LABS: Protein, Urine (Random) < 6.0 mg/dL (<11.9); Protein:Creat Ratio 265 mg/g CRE (0-200)
[2024-10-18 17:32] LABS: ALB/GLOB Ratio 0.8 RATIO (0.9-2.4); AST(SGOT) 13 U/L (15-37); Alanine Aminotransfer ALT/SGPT 21 U/L (13-56); Alkaline Phosphatase 124 U/L (45-117); Anion Gap 5 (5-15); BUN 12 mg/dL (7-18); Calcium,Total 9.6 mg/dL (8.5-10.1); Chloride 103 mmol/L (98-107); Creatinine, Serum 0.55 mg/dL (0.55-1.02); EST Glomerular Filtration Rate 136 mL/min (>60); Est Glom Filt Rate - Afr Amer 164 mL/min (>60); Globulin 3.8 g/dL (2.2-4.2); Glucose 88 mg/dL (74-106); Potassium 3.6 mmol/L (3.5-5.1); Protein, Total 6.8 g/dL (6.4-8.2); Sodium Level 134 mmol/L (136-145)
== END | disposition home or self-care (01) ==
LOC: BWCLAB 15:46
PROVIDERS: PCP Family Medicine; Referring Provider Obstetrics & Gynecology; Visit Provider Obstetrics & Gynecology
DX: O26.899 Other specified pregnancy related conditions, unspecified trimester (principal); R51.9 Headache, unspecified; Z3A.00 Weeks of gestation of pregnancy not specified

== ENCOUNTER → 2024-10-25 | Outpatient (CLI) | payer SELFPAY ==
--- NOTE | 2024-10-25 13:37 | US_ITS ---
INDICATION: GDM EXAMINATION: Ultrasound US OB Follow-Up TECHNIQUE: Transabdominal pelvic ultrasound was performed. COMPARISON: July 05, 2024 LMP: February 13, 2024 corresponding to gestational age of 36 weeks and 3 days. FINDINGS: INTRAUTERINE GESTATION(s): Single. The biparietal diameter measures 8.6 cm corresponding to gestational age of 34 weeks and 3 days. The head circumference measures 31.42 cm corresponding to gestational age of 35 weeks and 2 days. The abdominal circumference measures 30.8 cm corresponding to gestational age of 34 weeks and 5 days. The femur length measures 6.92 cm corresponding to gestational age of 35 weeks and 4 days. ESTIMATED GESTATIONAL AGE: 35 weeks and 1 day ESTIMATED DUE DATE (WILL): November 28, 2024 HEART MOTION is 135 bpm. AMNIOTIC FLUID INDEX (SOLANGE): 12.07 cm ESTIMATED WEIGHT: 2578 g Percentile 19.8%. BIOPHYSICAL PROFILE (BPP): Not assessed. PRESENTATION: Cephalic PLACENTA: Posterior and right lateral. US/OB Limited With Biometrics IMPRESSION: Single live intrauterine of 35 weeks and 1 day . Electronically Signed: Louise Lowe MD at 10:20 EST ,
== END | disposition home or self-care (01) ==
PROVIDERS: PCP Family Medicine; Referring Provider Advanced Practice Midwife; Visit Provider Advanced Practice Midwife
DX: O24.419 Gestational diabetes mellitus in pregnancy, unspecified control (principal); Z3A.00 Weeks of gestation of pregnancy not specified
CPT/HCPCS: 76816

== ENCOUNTER → 2024-10-25 | Outpatient (CLI) | payer SELFPAY ==
[2024-10-25 17:17] LABS: Hematocrit 39.8 % (37-47); Hemoglobin 13.6 g/dL (12.0-15.0); Mean Corp Hgb Conc 34.2 g/dL (32-36); Mean Corpuscular Hgb 30.7 pg (27.0-32.0); Mean Corpuscular Volume 89.8 fL (81-99); Mean Platelet Vol. 12.6 fl (6.2-12.0); Platelet Count 142 K/mm3 (150-450); RBC Distribution Width CV 13.5 % (11.6-14.6); RBC Distribution Width SD 44.5 fl (35.1-43.9); Red Blood Count 4.43 M/mm3 (4.2-5.4); White Blood Count 12.4 K/mm3 (4.4-11.0)
[2024-10-25 17:27] LABS: Protein, Urine (Random) < 6.0 mg/dL (<11.9)
[2024-10-25 17:29] LABS: ALB/GLOB Ratio 0.8 RATIO (0.9-2.4); AST(SGOT) 14 U/L (15-37); Alanine Aminotransfer ALT/SGPT 19 U/L (13-56); Albumin, Serum 2.8 g/dL (3.2-5.0); Alkaline Phosphatase 122 U/L (45-117); Anion Gap 7 (5-15); BUN 8 mg/dL (7-18); BUN/Creat Ratio 13.7 RATIO (10-20); Calcium,Total 8.7 mg/dL (8.5-10.1); Chloride 105 mmol/L (98-107); Creatinine, Serum 0.58 mg/dL (0.55-1.02); EST Glomerular Filtration Rate 126 mL/min (>60); Est Glom Filt Rate - Afr Amer 153 mL/min (>60); Globulin 3.6 g/dL (2.2-4.2); Glucose 79 mg/dL (74-106); Potassium 3.5 mmol/L (3.5-5.1); Protein, Total 6.4 g/dL (6.4-8.2); Sodium Level 136 mmol/L (136-145); Uric Acid 3.3 mg/dL (2.6-6.0)
== END | disposition home or self-care (01) ==
LOC: BWCLAB 14:51
PROVIDERS: Obstetrics & Gynecology; PCP Family Medicine; Referring Provider Advanced Practice Midwife; Visit Provider Advanced Practice Midwife
DX: O26.899 Other specified pregnancy related conditions, unspecified trimester (principal); R51.9 Headache, unspecified; Z3A.36 36 weeks gestation of pregnancy
CPT/HCPCS: 36415; 80053; 82570; 84156; 84550; 85027; 87081

== ENCOUNTER 2024-11-19 07:20 | Inpatient (IN) | payer SELFPAY ==
[2024-11-19] VITALS (42 sets, daily range): BP systolic 82–146; BP diastolic 55–98; PULSE 73–115; RESP 16–18; TEMP 36.1–37.3; O2SAT 91–100; BMI 33.3
[2024-11-19 07:53] LABS: Absolute Lymphocyte Count 2.53 X10^3/uL (0.83-4.51); Absolute Neutrophil Count 7.9 X10^3/uL (2.0-7.7); Basophil# 0.05 X10^3/uL; Basophil% 0.4 % (0-1); Eosinophil# 0.07 X10^3/uL; Eosinophils% 0.6 % (0-5); Hematocrit 38.6 % (37-47); Hemoglobin 13.7 g/dL (12.0-15.0); Lymphocyte # 2.53 X10^3/ul (0.83-4.51); Lymphocyte % 21.2 % (19-41); Mean Corp Hgb Conc 35.5 g/dL (32-36); Mean Corpuscular Hgb 31.4 pg (27.0-32.0); Mean Corpuscular Volume 88.3 fL (81-99); Mean Platelet Vol. 12.2 fl (6.2-12.0); Monocyte# 1.25 X10^3/uL; Monocyte% 10.5 % (0-10); NRBC Flagged by Analyzer 0 % (0-5); Neutrophil # 7.91 X10^3/uL (2.7-7.7); Neutrophil % 66.3 % (47-70); Platelet Count 121 K/mm3 (150-450); RBC Distribution Width CV 13.1 % (11.6-14.6); RBC Distribution Width SD 42.6 fl (35.1-43.9); Red Blood Count 4.37 M/mm3 (4.2-5.4); White Blood Count 11.9 K/mm3 (4.4-11.0)
[2024-11-19] MEDS: Lactated Ringers 1,000 ML 50 ML IV (08:19)
[2024-11-19] MEDS: Oxytocin 15 Units/NS 250ml 15 UNITS/250 ML IV.SOLN 2 UNITS IV (08:32)
[2024-11-19] MEDS: Lactated Ringers 1,000 ML 999 ML IV (08:34)
--- NOTE | 2024-11-19 08:36 | HP.PCM.OB_ITS ---
HPI - General General Date of Admission: 11/19/24 Chief Complaint: IOL HPI Narrative GABRIELLE ALTAMIRANO, is a 34 F who presents at 40 weeks for IOL. good fm. irreg ctx. no vb/lof. hx of GDM well controlled with diet. Maternal Data Information WILL Calculator Estimated Delivery Date Method Current WG Current Estimate 11/19/24 LMP (Certain) 40w 0d PFSH PFSH Medical History (Updated 11/19/24 @ 08:39 by Alma Guerra CNM) depression Gestational diabetes Seasonal allergies Vaginal delivery Home Medications ?Medication ?Instructions ?Recorded ?Last Taken ?Type choline 250 mg tablet 75 mg PO DAILY 11/18/24 History multivitamin no.47-iron fum 27 cap PO 11/18/24 History mg-folate no.1 1 mg-dha 300 mg capsule (PNV-DHA) omega-3 fatty acids 1,000 mg 1,000 mg PO QDAY pregnanc y 06/28/24 11/18/24 History capsule blood sugar diagnostic (Blood #120 ea 08/23/24 Unknown Rx Glucose Test strips) blood-glucose meter #1 ea 08/23/24 Unknown Rx lancets 30 gauge (Droplet Lancets) #200 ea 08/23/24 Un known Rx Allergy/AdvReac Type Severity Reaction Status Date / Time No Known Allergies Allergy Verified 11/19/24 07:38 Family History Mother Diabetes Fatty liver Stillborn, normal Father Fatty liver Hypertension CVA (cerebral vascular accident) Cerebral palsy Hypercholesterolemia Surgical History H/O wisdom tooth extraction Social History adopted: No household members: spouse, children and other details: brother number of children: 1 current occupational status: employed current occupation: [employer] pets and animals: Yes (Avoid litterbox) pets and animals: cat(s) and dog(s) history of recent travel: No sexually active: Yes Smoking Status: Never smoker alcohol intake: current alcohol intake frequency: holidays/special occasions only details: not while substance use type: does not use diet: other well-balanced diet: other details: follows kosher diet caffeine: No eating out: 1-3 times/week during the past year weight has: increased > 10 lbs what type of physical activity do you participate in: none josué/gnosticism: Other seatbelt use: always do you feel safe at home: Yes 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 Date Name GA/Weeks Outcome Route Bth Weight Infant Gen Labor Lgth Anesthesia Del Locatn Provider FOB 05/28/22 Jose 40 live - full term 6#12oz Female epid ural [facility] Dr. Edi Travis Visit Details Expected Delivery Route/Plan Labor Preferences- CB/BF classes: [] labor support person: [] labor intervention preferences: [] pain management options preferred: [] cut cord/dad catch: [] : [] PP control planned: [] discussed possible routes of delivery and associated risks: [] special requests: [] Plans Covid status: [] Flu vaccine: declined Tdap vaccine: declined Rhogam: na LARC form signed:declined movement and labor precautions reviewed. Problem list reviewed and updated with the most current plan of care details and appropriate orders placed. Relevant counseling for the gestational age provided. Continue routine care and follow up unless otherwise noted in visit notes/problem list details OB Flowsheet Initial Weight: 175 lb Date -?-?-?-?-?-?-?-?-?-?-?-?- EGA Weight BP Urine Prot -?-?-?-?-?-?-?-?-?-?-?-?- Glucose FHR FuHt Pres Dilation -?-?-?-?-?-?-?-?-?-?-?-?- Effaced St Visit Note 05/03/24 -?-?-?-?-?-?-?-?-?-?-?-?- 11w 3d 175 lb 6 oz (+6 oz) 114/72 -?-?-?-?-?-?-?-?-?-?-?-?- 171 -?-?-?-?-?-?-?-?-?-?-?-?- LC- CRL con with LMP 41mm. elects nipt. add hgba1c for obesity. 06/07/24 -?-?-?-?-?-?-?-?-?-?-?-?- 16w 3d 178 lb 4 oz (+3 lb 4 oz) 113/78 Negative -?-?-?-?-?-?-?-?-?-?-?-?- Negative 156 -?-?-?-?-?-?-?-?-?-?-?-?- JV- pt complains of dizziness, fevers on and off and cough. She also has concerns about weight gain but only gained 3 pounds. she declines chest x-ray and blood work at this time and wants to try claritin and bonine. recommend compression stockings and increase fluids. 06/28/24 -?-?-?-?-?-?-?-?-?-?-?-?- 19w 3d 181 lb (+6 lb) 111/77 Negative -?-?-?-?-?-?-?-?-?-?-?-?- Negative 158 -?-?-?-?-?-?-?-?-?-?-?-?- KW- no vb/crampi ng. +flutters. has US scheduled. 07/26/24 -?-?-?-?-?-?-?-?-?-?-?-?- 23w 3d 185 lb (+10 lb) 114/79 Negative -?-?-?-?-?-?-?-?-?-?-?-?- Negative 150 -?-?-?-?-?-?-?-?-?-?-?-?- SM- no vb crampi ng doing well reviewed anatomy US findings. 08/23/24 -?-?-?-?-?-?-?-?-?-?-?-?- 27w 3d 188 lb (+13 lb) 110/79 -?-?-?-?-?-?-?-?-?-?-?-?- 155 -?-?-?-?-?-?-?-?-?-?-?-?- kw- no vb/crampi ng. good fm. having some hip pain. chiropractor and stretching encouraged. did labs today-pending. declines flu. LARC today 09/06/24 -?-?-?-?-?-?-?-?-?-?-?-?- 29w 3d 187 lb (+12 lb) 111/78 -?-?-?-?-?-?-?-?-?-?-?-?- 145 30 -?-?-?-?-?-?-?-?-?-?-?-?- KW- BS reviewed. controlled. no vb/lof/ctx. good fm. US ordered 09/20/24 -?-?-?-?-?-?-?-?-?-?-?-?- 31w 3d 188 lb 6 oz (+13 lb 6 oz) 113/77 -?-?-?-?-?-?-?-?-?-?-?-?- 150 33 -?-?-?-?-?-?-?-?-?-?-?-?- SM- BS controlle d no vb lof good fm nor egular ctx co intermittent PELAYO with occasional floaters when she stands too long. 10/04/24 -?-?-?-?-?-?-?-?-?-?-?-?- 33w 3d 191 lb 8 oz (+16 lb 8 oz) 123/85 Negative -?-?-?-?-?-?-?-?-?-?-?-?- Negative 140 33 -?-?-?-?-?-?-?-?-?-?-?-?- KW- no vb/lof/ct x. good fm. reports BS is controlled. magnesium to help with sleeping. 10/18/24 -?-?-?-?-?-?-?-?-?-?-?-?- 35w 3d 191 lb 2 oz (+16 lb 2 oz) 130/84 Negative -?-?-?-?-?-?-?-?-?-?-?-?- Negative 145 34 -?-?-?--?-?-?-?-?-?-?-?-?- JV- pt complains of on and off headaches (none currently) but also her bp is slightly elevated. ordering PIH labs and prot+cr. ratio. She has a growth scan on 10/25. glucose log reviewed. some levels in the upper 120's but most are normal. 10/25/24 -?-?-?-?-?-?-?-?-?-?-?-?- 36w 3d 191 lb 6 oz (+16 lb 6 oz) 121/82 -?-?-?-?-?-?-?-?-?-?-?-?- 140 36 Cephalic 2 -?-?-?-?-?-?-?-?-?-?-?-?- 60 -2 KW- no vb/ lof/ctx. good fm GBS today. still having headaches every morning. labs repeated today 11/01/24 -?-?-?-?-?-?-?-?-?-?-?-?- 37w 3d 194 lb (+19 lb) 120/82 Negative -?-?-?-?-?-?-?-?-?-?-?-?- Negative 136 37 Cephalic 2 -?-?-?-?-?-?-?-?-?-?-?-?- 60 -2 LC- no vb/ ctx/lof. good fm. having daily headaches x1 month. no changes. does not take anything for these. they are in various places in her head and are intermittent. neg protein in urine, bp stable. recommended to take tylenol if worsening and magnesium daily for headaches. LC- no vb/ctx/lof. good fm. having daily headaches x1 month. no changes. does not take anything for these. they are in various places in her head and are intermittent. neg protein in urine, bp stable. recommended to take tylenol if worsening and magnesium daily for headaches. reviewed PEC symptoms. LC- no vb/ctx/lof. good fm. having daily headaches x1 month. no changes. does not take anything for these. they are in various places in her head and are intermittent. neg protein in urine, bp stable. recommended to take tylenol if worsening and magnesium daily for headaches. reviewed PEC symptoms. normal growth. bs normal. 11/08/24 -?-?-?-?-?-?-?-?-?-?-?-?- 38w 3d 194 lb 6 oz (+19 lb 6 oz) 122/85 Trace -?-?-?-?-?-?-?-?-?-?-?-?- Negative 145 39 Cephalic 3 -?-?-?-?-?-?-?-?-?-?-?-?- 60 -2 KW- no vb/ lof/ctx. good fm. labor precautions 11/15/24 -?-?-?-?-?-?-?-?-?-?-?-?- 39w 3d 197 lb 4 oz (+22 lb 4 oz) 123/85 -?-?-?-?-?-?-?-?-?-?-?-?- 140 39 Cephalic 4 -?-?-?-?-?-?-?-?-?-?-?-?- 70 -2 SM- no vb lof good fm no reuglar ctx IOL 40 weeks membrane swept NST FHR Rate Baby A Baseline: 140 Variability:: Moderate Accelerations:: 15 x 15 Decelerations:: None NST Reactive:: Yes FHR Category:: Category I Uterine Activity:: irregular ROS Cardiovascular Cardiovascular: Denies abdominal pain, chest pain, diaphoresis or dyspnea Respiratory/Chest Respiratory/Chest: Denies change in mental status, chest congestion, chest tightness, cough, shortness of breath at rest, shortness of breath with exertion, breast mass, breast pain, breast skin changes, breast swelling, change in breast shape or nipple discharge Genitourinary Genitourinary: Reports change in urinary stream Musculoskeletal Musculoskeletal: Reports none Integumentary Integumentary: Reports none Neurologic Neurologic: Reports none Psychiatric Psychiatric: Reports none Endocrine Endocrinology: Reports none Hematologic/Lymphatic Hematologic/Lymphatic: Reports none Allergic/Immunologic Allergic/Immunologic: Reports none Vital Signs Vital Signs Vital Signs: 11/19/24 07:30 11/19/24 07:30 11/19/24 07:30 Temperature Temperature Source Pulse Rate 112 H Respiratory Rate Blood Pressure 136/85 H BP Systolic 136 BP Diastolic 85 Pulse Ox 94 11/19/24 07:31 11/19/24 07:31 11/19/24 07:31 Temperature 97.8 F Temperature Source Temporal Pulse Rate Respiratory Rate 18 Blood Pressure BP Systolic BP Diastolic Pulse Ox Weight Weight: 194 lb 6.4 oz Body Mass Index (BMI) 33.3 Physical Exam Const alert, oriented x3 and no apparent distress General Appearance: cooperative, comfortable and well kempt Orientation / Consciousness: awake and oriented to person Exam Limitations: no limitations HEENT normocephalic Neck full ROM Chest inspection of chest normal Resp normal respiratory effort, normal air movement and no retractions Effort and Inspection: able to speak in complete sentences and symmetric chest movement Cardio regular rate Peripheral Pulses: pulses 2+ throughout GI normal to inspection, nondistended, normoactive bowel sounds Inspection: gravid no CVA tenderness and appearance of the vagina normal External Female Exam: normal appearance of the urethra; Negative for external lesion OB / External & Speculum: external exam normal Manual OB Exam: estimated gestational size appropriate, presentation cephalic, dilated 4, effaced 80 and station -2 Uterus Palpation: Negative for uterus tender Extremity normal to inspection Skin no rashes or lesions noted Neuro deep tendon reflexes 2+ bilaterally and gait normal Motor Exam: strength 5/5 throughout and clonus absent Psych Activity / Motor Behavior: appropriate eye contact Speech: normal speech Labs Labs Labs: Blood Type O POSITIVE Antibody Screen NEGATIVE Hct 38.6 % (37-47) Hgb 13.7 g/dL (12.0-15.0) Obstetrics Ultrasound Syphilis Total Ab Non-reactive Rubella IgG Antibody Reactive (Nonreactive) Hep Bs Antigen Non-Reactive (Nonreactive) Hepatitis C Antibody Non-Reactive (Nonreactive) Chlamydia DNA (ADONIS) Negative (Negative) N.gonorrhoeae DNA (ADONIS) Negative (Negative) HIV 1&2 Antibody Non-Reactive (Nonreactive) Glucose 1 Hr 50 gm 183 mg/dL (70-140) H Gest Glucose Tolerance MG/DL Assessment & Plan (1) Encounter for induction of labor: COMMENT: method: pitocin (2) Thrombocytopenia: COMMENT: on 10/18, stable (3) Gestational diabetes mellitus (GDM) affecting , antepartum: COMMENT: start testing QID and nutrition consult, diet controlled diabetes 36 week growth US (4) Depression: COMMENT: in counseling- states possible ADHD (5) Supervision of high-risk : COMMENT: PRR , WILL 11/19/24,girl PC Jose, Thaddeus (6) : QUALIFIERS: Weeks of gestation: 39 weeks Qualified Code(s): Z3A.39 - 39 weeks gestation of COMMENT: GBS neg, NIPT low risk, declined carrier ntd screening. nl anatomy - limited views of face and 4 chamber heart seen. 4 cm fibroid seen. PLAN: Plan Patient presents IOL, plan management for with pitocin/AROM. Pain management: plans epidural. platelets 121 today. GBS negative. Management of any complications: [none] I have reviewed the [facility] and made any clinically relevant updates. updated on admission, exam and poc. agrees with co-management for diabetes.
[2024-11-19 08:51] LABS: Syphilis Antibodies Non-reactive
[2024-11-19 08:56] LABS: Bedside Glucose 86 mg/dL (74-106)
[2024-11-19] MEDS: fentaNYL-bupivacaine (epidural) 100 ML BAG EPIDURAL (09:37)
[2024-11-19 10:19] LABS: Bedside Glucose 95 mg/dL (74-106)
[2024-11-19] MEDS: LACTATED RINGERS 500 ML 999 ML IV (11:18)
--- NOTE | 2024-11-19 12:15 | OB.VAGDELI_ITS ---
Assessment & Plan (1) (spontaneous vaginal delivery): COMMENT: LC IOL-GDM. girl (2) Thrombocytopenia: COMMENT: on 10/18, stable (3) Gestational diabetes mellitus (GDM) affecting , antepartum: COMMENT: start testing QID and nutrition consult, diet controlled diabetes 36 week growth US (4) Depression: COMMENT: in counseling- states possible ADHD (5) Supervision of high-risk : COMMENT: PRR , WILL 11/19/24,girl PC Jose, Thaddeus (6) : QUALIFIERS: Weeks of gestation: 39 weeks Qualified Code(s): Z3A.39 - 39 weeks gestation of COMMENT: GBS neg, NIPT low risk, declined carrier ntd screening. nl anatomy - limited views of face and 4 chamber heart seen. 4 cm fibroid seen. Maternal Data Information WILL Calculator Estimated Delivery Date Method Current WG Current Estimate 11/19/24 LMP (Certain) 40w 0d Vaginal Delivery Maternal Presentation Maternal Presentation: Medically Indicated Induction Maternal Presentation: at 40 weeks for IOL for GDM diet controlled. pitocin started, epidural placed. SROM between 9am-11am. Type of Induction: Pitocin Medical Reason for Induction: Maternal Medical Condition: list: Vaginal Delivery Information Procedure Performed: Spontaneous Vaginal Delivery Surgeon/Practitioner: Alma Guerra Date of Procedure: 11/19/24 Type of anesthesia: Epidural Estimated Blood Loss: 150 Time of Delivery: 11:55 Findings Description of procedure: Patient began pushing and delivered the head in the BLANCA presentation. The head was delivered atraumatically. The anterior and posterior shoulders delivered without complication followed by the rest of the infant and the infant was placed on the maternal abdomen. Delayed cord clamping was employed for approximately 3 minutes. Cord was clamped and cut and gentle traction was applied to the cord and the placenta delivered spontaneously immediately following it was noted to be intact with three-vessel cord. The perineum and vagina were inspected and noted to have no laceration. EBL was 150cc. Patient and tolerated delivery well. Presentation: Vertex Amniotic Membrane Rupture Type: Spontaneous Amniotic Fluid Description: Clear Placental Delivery Description: Spontaneous Placenta Disposition: [facility] Cord Vessel Description: 3 Vessels Cord Entanglement: None Infant A Gender: Female (1 minute): 8 (5 minute): 9 Delayed Cord Clamping: Yes Post Vaginal Deli Medications given after delivery: IV Pitocin Episiotomy Description: None Laceration: None Complication Complications: No Procedures Urinary/Genital [id number]: [id number] Vaginal Delivery [facility]
[2024-11-19] MEDS: Oxytocin 15 Units/NS 250ml 15 UNITS/250 ML IV.SOLN 83 UNITS IV (12:30)
[2024-11-19 13:13] LABS: Bedside Glucose 94 mg/dL (74-106)
[2024-11-20] MEDS: Senna/Docusate Sodium 1 Tablet PO (00:02)
[2024-11-20] MEDS: Naproxen 500 MG Tablet PO (00:03)
[2024-11-20 04:25] VITALS: BP 122/73; PULSE 77; RESP 16; TEMP 36.6; O2SAT 97
[2024-11-20 04:28] VITALS: BP 122/73; PULSE 83
[2024-11-20 04:59] LABS: Bedside Glucose 77 mg/dL (74-106)
[2024-11-20 08:02] VITALS: BP 109/74; PULSE 86; RESP 17; TEMP 36.2
--- NOTE | 2024-11-20 08:16 | PCM.PN.OB ---
Subjective Subjective Patient doing well without complaints. Tolerating PO. Ambulating and voiding without difficulty. Feeding well. Denies chest pain, shortness of breath, calf pain/swelling, fevers, chills, lightheadedness. Objective Data Objective Data Vital Signs: Vital Signs Temp Pulse Resp BP Pulse Ox O2 Del Method 97.2 F L 86 17 109/74 97 Room Air 11/20/24 08:02 11/20/24 08:02 11/20/24 08:02 11/20/24 08:02 11/20/24 04:25 11/20/24 08:02 Oxygen Delivery Method Room Air Weight: 194 lb 6.4 oz Body Mass Index (BMI) 33.3 Intake & Output: Intake and Output for Last 24 Hours 11/18/24 11/19/24 11/20/24 23:59 23:59 23:59 Intake Total 1905.42 / 1905.42 Output Total 900 / 900 Balance 1005.42 / 1005.42 Lab / Micro Data 11/19/24 07:35 Labs: Laboratory Results - last 24 hr 11/19/24 07:35: WBC 11.9 H, RBC 4.37, Hgb 13.7, Hct 38.6, MCV 88.3, MCH 31.4, MCHC 35.5, RDW Std Deviation 42.6, RDW Coeff of Neeraj 13.1, Plt Count 121 L, MPV 12.2 H, Immature Gran % (Auto) 1.000 H, Neut % (Auto) 66.3, Lymph % (Auto) 21.2, [place] % (Auto) 10.5 H, Eos % (Auto) 0.6, Baso % (Auto) 0.4, Absolute Neuts (auto) 7.9 H, Absolute Lymphs (auto) 2.53, Nucleated RBC % 0, Syphilis Total Ab Non-reactive 11/19/24 07:40: Blood Type O POSITIVE, Antibody Screen NEGATIVE 11/19/24 08:30: POC Glucose 86 11/19/24 09:46: POC Glucose 95 11/19/24 12:40: POC Glucose 94 11/20/24 04:31: POC Glucose 77 Physical Exam Const alert and oriented x3 HEENT normocephalic Eyes PERRL Neck full ROM Resp normal respiratory effort GI soft to palpation GI Narrative: FF below U Assessment & Plan (1) (spontaneous vaginal delivery): COMMENT: LC IOL-GDM. Rachaelena (2) Thrombocytopenia: COMMENT: on 10/18, stable (3) Gestational diabetes mellitus (GDM) affecting , antepartum: COMMENT: stable pp (4) Depression: QUALIFIERS: Depression Type: unspecified Qualified Code(s): F32.A - Depression, unspecified COMMENT: in counseling- states possible ADHD; stable PLAN: Plan s/p PPD # 1 1. routine post delivery care 2. breast feeding- support given 3. rh positive 4. rubella immune 5. glucose stable 6. home today
--- NOTE | 2024-11-20 12:30 | CASEMGMT ---
Social Work Assessment Labor and Delivery Unit Patient Address: [address] [place] [id number] Phone number: [phone] Date of Referral: 11/19/24 Time of Referral:? 1346 Referred By: Alma Guerra Date of Intervention: ??11/20/24 Time of Intervention:? 1100 Reason for Referral:? hx post depression Sw completed chart review and acknowledges social work consult due to maternal history of PPD. Sw presented to bedside and introduced self to mother of baby (ROWAN- Michelle). Sw explained reason for sw involvement and completed psychosocial assessment. History obtained from: medical records, MOB Household composition: Currently residing in the home is MOB, father of baby (EVERETT- Thaddeus) and their 2 year old daughter, Jose. baby to be included in residence when ready for discharge. ROWAN denies any problems or concerns with housing at this time. Patient's parent/guardian status: ROWAN states that she and EVERETT have been together for four years after [facility]. baby is second baby for parents together. MOB denies any problems with domestic violence or intimate partner violence. ? Medical History: ?ROWAN is 34 year old female who is 2, para 1- now 2 following labor and delivery of . ROWAN received routine care during with [place]. ROWAN presented to hospital for scheduled induction of labor. ROWAN delivered baby on 11/19/24 via vaginal delivery at 40 weeks gestation. Baby girl, named Vickie Kellogg, was born weighing 6lb 13oz and had apgars of 8 and 9 at one and five minutes of life, respectfully. ROWAN is breast feeding, stating that it is going well. Baby will be followed by Dr. Olivarez for pediatrics. Educational Status:?Both parents graduated from high school, FOB graduated with a degree and ROWAN attended some college but did not graduate. ROWAN denies any problems with concerns with reading, comprehension or learning. Financial Status: Both parents are gainfully employed outside of the home. FOB works as a pcb designer and ROWAN works for [employer]. Supplies: All necessary baby supplies obtained, including: car seat, safe sleep space, clothes, diapers and wipes. Childcare/Caregiver(s):?ROWAN states that she would be primary caregiver along with EVERETT when he is not working. Transportation:?No barriers, both parents have their drivers license and reliable means of transportation. Programs/Agencies Involved: ??MOB states that she is connected to counseling at [facility]. MOB states that they are taking a break from counseling at this time, but she is able to start it up at any time she feels the need. ? Children Services/Legal Issues:??? No history of children services involvement, no issues or concerns warranting referral to be made at this time. Behavioral Health Issues: ??Mental Health History:??MOB states that EVERETT does not have any mental health diagnoses. MOB states that she has been diagnosed with depression and possibly ADHD. Nursing staff indicated specific concerns regarding MOB experiencing anxiety during labor and delivery, so sw asked more specific questions about MOB experiencing any anxiety during , or during labor. MOB denied. MOB also denies history of depression. ROWAN reports that the only thing she felt sad about during her period with her first baby was when she realized how big she was getting in a short period of time. ? Substance Use History:?MOB denies substance use prior to and during . ? Family History:??MOB denies family history of substance use or significant mental health diagnoses. ??? Drug Screens: No drug screens observed during chart review Family/Social Stressors: MOB denies any problems, issues or concerns at this time. MOB states that this delivery went much more smoothly than her first. ? Support Systems: MOB states that FOB and paternal grandparents are the biggest supports. Depression/Shaken Baby/Safe Sleeping: Sw educated MOB on what signs and symptoms of baby blues and depression/ anxiety look like. Sw specifically highlighted symptoms of anxiety as that is what was addressed as a concern by staff. MOB expressed understanding. MOB stated that if she were to struggle with her mental health during this period FOB would be able to recognize that. MOB denies any sadness, anxiety, or tearfulness since delivery. Sw educated MOB on shaken baby prevention and ABCs of safe sleep. MOB expressed understanding. ASSESSMENT:? MOB and baby admitted following labor and delivery of . MOB with mental health history, not prescribed medications and has mental health services and supports accessible. MOB states that FOB is her biggest support, they have been together for four years and this is their second child together. MOB answered questions during completion of assessment but did not elaborate on answers. MOB was observed sitting in bed and holding/ caring for lovingly and appropriately. MOB was observed to have a wesley/ connection with baby, and also reports this to be true. MOB has obtained all necessary baby supplies and has natural supports in place. PLAN:?? No other services requested or indicated. MOB and baby to be discharged when medically ready. Parents were provided literature regarding: signs and symptoms of baby blues and mood and anxiety disorders, Help Me Grow, shaken baby prevention, ABCs of safe sleep and a list of county resources that are available for them should any needs present themselves. Jerald Silvestre, POURER, CONTACT ACID PLANT OPERATOR
[2024-11-20 13:05] VITALS: BP 120/85; PULSE 94; RESP 17; TEMP 36.1
[2024-11-20 13:08] VITALS: BP 120/85; PULSE 94
== END 2024-11-20 16:15 | disposition home or self-care (01) | DRG 806 ==
PROVIDERS: Obstetrics & Gynecology; Admitting Provider Registered Nurse; PCP Family Medicine; Referring Provider Registered Nurse; Visit Provider Registered Nurse
DX: O24.420 Gestational diabetes mellitus in childbirth, diet controlled (principal); Z37.0 Single live birth; O99.12 Other diseases of the blood and blood-forming organs and certain disorders involving the immune mechanism complicating childbirth; D69.6 Thrombocytopenia, unspecified; F32.A Depression, unspecified; Z3A.39 39 weeks gestation of pregnancy; O99.344 Other mental disorders complicating childbirth
CPT/HCPCS: 59025; 59050; 82962; 85025; 86780; 86850; 86900; 86901